=== PATIENT | female | born 1950 | race Two or more races ===

== ENCOUNTER 2020-09-24 05:00 | Inpatient (IN) | payer OTHER ==
[~2020-09-24] VITALS: Ht 160 cm; Wt 64.4 kg
[~2020-09-24 05:00] MED LIST: CORTISONE25 MG PO; MAXIMUM D3325 MCG PO; PLAQUENIL; PROTONIX20 MG PO; VITAMIN C500 M6 PO
[2020-09-24] MEDS ORDERED: HYDROXYCHLOROQ200 MG (14:08)
[2020-09-24] MEDS ORDERED: VENLAFAXINE HC150 MG (14:08)
[2020-09-24] MEDS ORDERED: PANTOPRAZOLE SO40 MG (14:09)
[2020-09-24] MEDS ORDERED: VITAMIN D3250 MCG (14:11)
== END 2020-09-25 10:51 | disposition home or self-care (01) | DRG 419 ==
LOC: CIR.AMB 05:00 → O/R 10:36 → SURG 10:36
PROVIDERS: ADMIT Specialist; ATTEND Specialist
PROC: BF532Z0 Other Imaging of Gallbladder and Bile Ducts using Fluorescing Agent, Intraoperative (ICD-10-PCS; 2020-09-24)
PROC: 0FT44ZZ Resection of Gallbladder, Percutaneous Endoscopic Approach (ICD-10-PCS; principal; 2020-09-24 07:00)
DX: K80.10 Calculus of gallbladder with chronic cholecystitis without obstruction (principal); M32.8 Other forms of systemic lupus erythematosus; M35.00 Sjogren syndrome, unspecified